=== PATIENT | male | born 1940 | race Caucasian/White ===

== ENCOUNTER → 2016-09-23 | Outpatient (CLI) | payer MEDICARE, OTHER ==
[~2016-09-23] MED LIST: OMEP20CA5 OR; TAMS0.4C36 PO
[2016-09-23 07:10] LABS: Basophils # (auto) 0 uL; Basophils % (auto) 0.4 % (0.0-2.0); Eosinophils # (auto) 0.1 uL; Eosinophils % (auto) 2.1 % (0.0-7.0); Hemoglobin 14.2 g/dL (13.5-17.5); Lymphocytes # (auto) 1.5 uL; Lymphocytes % (auto) 22.9 % (10.0-50.0); Mean Corpuscular Hemoglobin 30.1 pg (28.0-32.0); Mean Corpuscular Hgb Conc. 32.9 g/dL (32.0-36.0); Mean Corpuscular Volume 91.5 fL (80.0-100.0); Mean Platelet Volume 8.4 fL (7.4-10.4); Monocytes # (auto) 0.5 uL; Monocytes % (auto) 8.1 % (0.0-12.0); Neutrophils # (auto) 4.2 uL; Neutrophils % (auto) 66.5 % (37.0-80.0); Platelet Count (auto) 237 10^3/uL (140-450); Red Cell Distribution Width 13.3 % (11.6-16.0); White Blood Cell 6.4 10^3/uL (4.4-10.8)
[2016-09-23 07:19] LABS: Urine Bilirubin Negative (Negative); Urine Blood Negative /uL (Negative); Urine Color Yellow (Yellow); Urine Glucose Normal (Normal); Urine Ketone Negative (Negative); Urine Nitrite Negative (Negative); Urine RBC <1 /hpf (0 - 3); Urine Squamous Epithelial Cell FEW /hpf (<5); Urine Urobilinogen Normal (Negative); Urine pH 6.5 (5.0-8.0)
[2016-09-23 07:24] LABS: INR 0.94 (0.9-1.15); Partial Thromboplastin Time 26.4 sec (22.64-33.71); Prothrombin Time 10.1 sec (9.37-12.3)
[2016-09-23 08:00] LABS: Albumin 3.3 g/dL (3.4-5.0); BUN/Creatinine Ratio 14.7; Bilirubin, Total 0.7 mg/dL (0.2-1.0); Calcium 8.8 mg/dL (8.5-10.1); Potassium 4.4 mmol/L (3.5-5.1); Total Protein 7.5 g/dL (6.4-8.2)
== END | disposition home or self-care (01) ==
LOC: LAB 06:33
PROVIDERS: ATTEND Internal Medicine
DX: E78.2 Mixed hyperlipidemia (principal); I10 Essential (primary) hypertension; E11.9 Type 2 diabetes mellitus without complications; E55.9 Vitamin D deficiency, unspecified
CPT/HCPCS: 36415; 80053; 80061; 81001; 82043; 82306; 83036; 85025; 85610; 85730

== ENCOUNTER 2017-08-16 09:26 | Day surgery (SDC) | payer MEDICARE, OTHER ==
[2017-08-12 10:01] LABS: Basophils # (auto) 0 uL; Basophils % (auto) 0.5 % (0.0-2.0); Eosinophils # (auto) 0.2 uL; Hematocrit 39.6 % (41.0-53.0); Hemoglobin 13.3 g/dL (13.5-17.5); Lymphocytes % (auto) 14.1 % (10.0-50.0); Mean Corpuscular Hemoglobin 30.5 pg (28.0-32.0); Mean Corpuscular Hgb Conc. 33.7 g/dL (32.0-36.0); Mean Corpuscular Volume 90.4 fL (80.0-100.0); Monocytes # (auto) 0.5 uL; Neutrophils # (auto) 5.6 uL; Neutrophils % (auto) 76.4 % (37.0-80.0); Nucleated Red Blood Cells % 0.1 %; Platelet Count (auto) 218 10^3/uL (140-450); Red Blood Cells 4.38 10^6/uL (4.5-5.90); Red Cell Distribution Width 13.7 % (11.8-14.3); White Blood Cell 7.4 10^3/uL (4.4-10.8)
[2017-08-12 10:13] LABS: INR 0.94 (0.9-1.15); Prothrombin Time 10.2 sec (9.37-12.3)
[~2017-08-16] VITALS: Ht 177.8 cm; Wt 77.1 kg
[~2017-08-16 09:26] MED LIST changes: +ATOR40TA52 PO; +CAR25T PO; +CHOL500021 OR; +FINA5TAB4 PO; +GABA300C10 PO; +METF-371 PO; -OMEP20CA5 OR; +OMEP20CA74 OR
[2017-08-16] MEDS ORDERED: LIDOCAINE VISCOUS 2% 15ML UD ONE (09:53)
[2017-08-16] MEDS ORDERED: MIDAZOLAM HCL 5 MG/ML-1ML VIAL ONE (09:54)
[2017-08-16] MEDS ORDERED: diphenhdrAMINE HCL 50 MG/1 ML VL ONE (09:54)
[2017-08-16] MEDS ORDERED: fentaNYL CITRATE 100 MCG/2 ML VL ONE (09:54)
[2017-08-16 11:14] VITALS: BP 134/72
== END 2017-08-16 11:27 | disposition home or self-care (01) ==
LOC: GI 09:26
PROVIDERS: ATTEND Internal Medicine Gastroenterology
DX: K22.70 Barrett's esophagus without dysplasia (principal); K44.9 Diaphragmatic hernia without obstruction or gangrene; E66.9 Obesity, unspecified; G20 Parkinson's disease; K75.9 Inflammatory liver disease, unspecified; I25.9 Chronic ischemic heart disease, unspecified; K21.9 Gastro-esophageal reflux disease without esophagitis
CPT/HCPCS: 36415; 43239; 82962; 85025; 85610; J2250; J3010; J7030

== ENCOUNTER → 2018-07-07 | Outpatient (CLI) | payer MEDICARE, OTHER ==
[~2018-07-07] VITALS: Ht 177.8 cm; Wt 77.1 kg
[2018-07-07 12:13] LABS: Basophils # (auto) 0 uL; Basophils % (auto) 0.3 % (0.0-2.0); Eosinophils # (auto) 0.1 uL; Eosinophils % (auto) 2.1 % (0.0-7.0); Lymphocytes # (auto) 1.1 uL; Mean Corpuscular Hgb Conc. 34.3 g/dL (32.0-36.0); Mean Corpuscular Volume 90.5 fL (80.0-100.0); Monocytes # (auto) 0.4 uL; Monocytes % (auto) 6.2 % (0.0-12.0); Neutrophils # (auto) 4.5 uL; Neutrophils % (auto) 73.4 % (37.0-80.0); Nucleated Red Blood Cells % 0.1 %; Platelet Count (auto) 196 10^3/uL (140-450); Red Blood Cells 4.53 10^6/uL (4.5-5.90); Red Cell Distribution Width 13.2 % (11.8-14.3); White Blood Cell 6.1 10^3/uL (4.4-10.8)
[2018-07-07 12:20] LABS: Urine Blood Negative /uL (Negative); Urine Specific Gravity 1.012 (1.001-1.035)
[2018-07-07 12:29] LABS: Albumin 3.5 g/dL (3.4-5.0); Potassium 4.5 mmol/L (3.5-5.1)
[2018-07-07 12:36] LABS: Free T4 (Free Thyroxine) 1.13 ng/dL (0.89-1.76); Prostate Specific Antigen 0.9 ng/mL (0.0-4.0)
[2018-07-07 12:38] LABS: BUN/Creatinine Ratio 17.4; Bilirubin, Total 0.6 mg/dL (0.2-1.0); Calcium 8.7 mg/dL (8.5-10.1); Total Protein 7.4 g/dL (6.4-8.2)
== END | disposition home or self-care (01) ==
LOC: Rad HDHVI 07:59
PROVIDERS: ATTEND Internal Medicine Cardiovascular Disease
DX: N40.0 Benign prostatic hyperplasia without lower urinary tract symptoms (principal); E78.00 Pure hypercholesterolemia, unspecified; E03.9 Hypothyroidism, unspecified; E11.9 Type 2 diabetes mellitus without complications; E55.9 Vitamin D deficiency, unspecified; C61 Malignant neoplasm of prostate; D51.9 Vitamin B12 deficiency anemia, unspecified; N39.0 Urinary tract infection, site not specified
CPT/HCPCS: 36415; 78452; 80053; 80061; 81003; 82306; 82607; 83036; 84153; 84403; 84439; 84443; 85025; 87086; 93017; 96374; A9500